=== PATIENT | female | born 1985 | race Caucasian/White ===

== ENCOUNTER 2019-03-28 16:10 | Emergency (ER) | payer OTHER ==
[2019-03-28 16:26] VITALS: BP 132/92; PULSE 89; RESP 18; TEMP 98.8
[2019-03-28] MEDS ORDERED: cloNIDine HCL 0.2 MG TAB PO STA (17:02)
[2019-03-28] MEDS ORDERED: ONDANSETRON 4 MG TAB PO STA (17:02)
--- NOTE | 2019-03-28 17:07 | ED ---
General Adult HPI - General Chief complaint: Nausea/Vomiting/Diarrhea Stated complaint: abdominal pain and nausea Time Seen by Provider: 03/28/19 16:34 Source: patient Mode of arrival: ambulatory Limitations: no limitations - History of Present Illness Initial comments: The patient is a 33-year-old female with a history of heroin abuse, currently on Suboxone who presents with a chief complaint of nausea and diarrhea. The patient states that she believes her symptoms are secondary to Suboxone withdrawal. She says that she ran out of her medication 2 days ago. She normally gets it filled by her primary care doctor, she states that she has appointment with him on . Patient denies any fever, chills. She states that the lesson this happened she came to the emergency department and she was given a prescription for 3 days of Suboxone. I discussed with her that I cannot read the specific medication as it requires a septic license. Patient states that she thinks that she went to [facility] and that she would like to be discharged so that she can go there. - Related Data Allergies Allergy/AdvReac Type Severity Reaction Status Date / Time Sulfa (Sulfonamide Allergy Unknown Verified 03/28/19 16:26 Antibiotics) Childhood Review of Systems ROS Statement: Those systems with pertinent positive or pertinent negative responses have been documented in the HPI. ROS Other: All systems not noted in ROS Statement are negative. Constitutional: Reports: chills Gastrointestinal: Reports: nausea, diarrhea Past Medical History Past Medical History: No Reported History History of Any Multi-Drug Resistant Organisms: None Reported Past Surgical History: No Surgical Hx Reported Past Psychological History: No Psychological Hx Reported Smoking Status: Current every day smoker Past Alcohol Use History: None Reported Past Drug Use History: None Reported General Exam Limitations: no limitations General appearance: alert, in no apparent distress Head exam: Present: atraumatic, normocephalic Eye exam: Present: normal appearance ENT exam: Present: normal exam Neck exam: Present: normal inspection Respiratory exam: Present: normal lung sounds bilaterally. Absent: respiratory distress, wheezes Cardiovascular Exam: Present: normal rhythm, tachycardia GI/Abdominal exam: Present: soft. Absent: distended, tenderness Rectal exam: Present: deferred Extremities exam: Present: normal inspection Back exam: Present: normal inspection Neurological exam: Present: alert, oriented X3 Psychiatric exam: Present: normal affect, normal mood Skin exam: Present: warm, dry, intact Course Vital Signs 03/28/19 16:23 Temperature 98.8 F Pulse Rate 89 Respiratory 18 Rate Blood Pressure 132/92 O2 Sat by Pulse 98 Oximetry Medical Decision Making - Medical Decision Making The reasons a chief complaint of nausea and diarrhea. On initial evaluation, vitals are stable, patient is in no acute distress. Patient states that she ran out of her Suboxone which is causing her symptoms. I offered Zofran and clonidine for symptomatic management as the patient has follow-up with her prescribing doctor on . Patient inquired about getting a short course of Suboxone written for her from the emergency department. I discussed this is not something that we can do with this specific medication. She states that she would like to be discharged so she can go to [facility]. Patient given 1 dose of Zofran and clonidine, discharged in stable condition. She is instructed to follow-up with her primary care doctor and call the office to be seen sooner. Return to the ED if symptoms worsen or change. Patient does not want further evaluation or labs to be drawn. Disposition Clinical Impression: Medication withdrawal Disposition: HOME SELF-CARE Condition: Good Is patient prescribed a controlled substance at d/c from ED?: No Referrals: Nestor Esquivel DO [Primary Care Provider] - 1-2 days
== END 2019-03-28 17:17 | disposition home or self-care (01) ==
LOC: EC 16:10
DX: F19.939 Other psychoactive substance use, unspecified with withdrawal, unspecified (principal); F17.200 Nicotine dependence, unspecified, uncomplicated; Z88.2 Allergy status to sulfonamides
CPT/HCPCS: 99283